=== PATIENT | male | born 1965 | race American Indian/Alaskan Native ===

== ENCOUNTER 2018-12-21 08:52 | Outpatient (CLI) | payer BC | END 2018-12-21 08:53 | disposition home or self-care (01) | LOC: C.CARD 08:52 | DX: E66.09 Other obesity due to excess calories (principal) ==

== ENCOUNTER 2018-12-25 12:02 | Outpatient (CLI) | payer BC | END 2018-12-25 12:03 | disposition home or self-care (01) | LOC: C.DIABED 12:02 | DX: E66.01 Morbid (severe) obesity due to excess calories (principal) ==